=== PATIENT | male | born 2000 | race Caucasian/White ===

== ENCOUNTER → 2023-11-14 07:35 | Outpatient (REF) | payer BC, SELFPAY | LOC: EMG 07:35 | PROVIDERS: ATTENDING PHYSICIAN Physician Assistant Surgical | DX: R20.2 Paresthesia of skin (principal) | CPT/HCPCS: 95886; 95910 ==

== ENCOUNTER → 2024-01-14 11:24 | Outpatient (REF) | payer BC, SELFPAY | LOC: RAD 11:24 | PROVIDERS: ATTENDING PHYSICIAN Orthopaedic Surgery; FAMILY PHYSICIAN Family Medicine | DX: M79.605 Pain in left leg (principal) | CPT/HCPCS: 73502 ==

== ENCOUNTER → 2024-05-17 10:01 | Outpatient (REF) | payer BC, SELFPAY | LOC: RAD 10:01 | PROVIDERS: ATTENDING PHYSICIAN Physician Assistant Medical; FAMILY PHYSICIAN Family Medicine | DX: M62.830 Muscle spasm of back (principal) | CPT/HCPCS: 71101; 72072 ==

== ENCOUNTER → 2025-03-25 13:04 | Outpatient (REF) | payer BC, SELFPAY | LOC: RAD 13:04 | PROVIDERS: ATTENDING PHYSICIAN Family Medicine | DX: S60.012A Contusion of left thumb without damage to nail, initial encounter (principal) | CPT/HCPCS: 73140 ==

== ENCOUNTER → 2025-04-11 17:20 | Outpatient (REF) | payer BC, SELFPAY | LOC: RAD 17:20 | PROVIDERS: ATTENDING PHYSICIAN Physician Assistant Medical | DX: M79.675 Pain in left toe(s) (principal) | CPT/HCPCS: 73630 ==

== ENCOUNTER → 2025-04-30 11:45 | Outpatient (REF) | payer BC, SELFPAY | LOC: MRI 11:45 | PROVIDERS: ATTENDING PHYSICIAN Psychiatry & Neurology Neurology; FAMILY PHYSICIAN Family Medicine | DX: R51.9 Headache, unspecified (principal) | CPT/HCPCS: 70551 ==

== ENCOUNTER → 2025-07-28 19:12 | Outpatient (REF) | payer BC, SELFPAY | LOC: MRI 19:12 | PROVIDERS: ATTENDING PHYSICIAN Nurse Practitioner; FAMILY PHYSICIAN Family Medicine | DX: G93.5 Compression of brain (principal) | CPT/HCPCS: 72141; 72146 ==

== ENCOUNTER → 2025-08-11 13:09 | Outpatient (REF) | payer BC, SELFPAY | LOC: MRI 3T 13:09 | PROVIDERS: ATTENDING PHYSICIAN Nurse Practitioner; FAMILY PHYSICIAN Family Medicine | DX: G93.5 Compression of brain (principal) | CPT/HCPCS: 70551 ==

== ENCOUNTER → 2025-11-09 08:55 | Outpatient (REF) | payer BC, SELFPAY | LOC: HWRAD 08:55 | PROVIDERS: ATTENDING PHYSICIAN Nurse Practitioner Family; FAMILY PHYSICIAN Family Medicine | DX: R10.30 Lower abdominal pain, unspecified (principal) | CPT/HCPCS: 76700 ==